=== PATIENT | female | born 2000 | race Asian ===

== ENCOUNTER → 2019-09-26 | Outpatient (CLI) | payer OTHER ==
--- NOTE | 2019-09-26 16:47 | Diagnostic Imaging Report ---
CLINICAL HISTORY: Crush injury of the left thumb. COMPARISON: None. TECHNIQUE: Three views of the left fingers. FINDINGS: There is no acute fracture or dislocation of the fingers of the left hand. No evidence of tuft fracture in the left thumb. Alignment is anatomic. No malalignment in the left hand. There is soft tissue edema involving the left thumb. No radiopaque foreign bodies are seen. IMPRESSION: No acute fracture or dislocation in the fingers of the left hand. Specifically, no fractures in the left thumb. Soft tissue edema is noted in the left thumb. Report was faxed to the office of NEREIDA Faye at 4:41 p.m., by stacey (for NITIN). Dictated by: Dictated on workstation # [id number]
== END ==
LOC: RAD 16:05
PROVIDERS: ATTEND Nurse Practitioner Family
DX: S67.02XA Crushing injury of left thumb, initial encounter (principal); S69.92XA Unspecified injury of left wrist, hand and finger(s), initial encounter; W23.0XXA Caught, crushed, jammed, or pinched between moving objects, initial encounter
CPT/HCPCS: 73140